=== PATIENT | female | born 1970 ===

== ENCOUNTER 2017-03-02 12:37 | Observation (INO) | payer MEDICAID, OTHER ==
[2017-03-02 12:42] VITALS: TEMP 97.7
[2017-03-02] MEDS ORDERED: Sodium Chloride 0.9% 1,000 ML IV ONE (12:53)
[2017-03-02] MEDS ORDERED: Iohexol 240 (50 ml) PO ONE (13:06)
[2017-03-02] MEDS ORDERED: Iohexol 240 (50 ml) ONE (13:24)
[2017-03-02] MEDS ORDERED: Sodium Chloride 0.9% 1,000 ML ONE (13:24)
[2017-03-02 13:53] LABS: SQUAMOUS EPITHIAL 4 /hpf (0-5); URINE BACTERIA RARE (<OCC); URINE BILIRUBIN NEGATIVE (NEGATIVE); URINE BLOOD NEGATIVE (NEGATIVE); URINE CLARITY Clear (Clear); URINE COLOR Yellow (YELLOW); URINE GLUCOSE (UA) 3+ mg/dL (Normal); URINE LEUKOCYTE ESTERASE NEG Leu/uL (Negative); URINE NITRATE NEGATIVE (NEGATIVE); URINE PROTEIN NEGATIVE (NEGATIVE); URINE UROBILINOGEN NORMAL mg/dL (0.2-1.0)
[2017-03-02 13:56] LABS: ALBUMIN 3.8 g/dL (3.5-5.0); BASO # 0.1 K/uL (0.0-0.2); BASO % 0.8 % (0.0-2.0); EOS # 0.1 K/uL (0.0-0.7); EOS % 1.8 % (0.0-4.0); HEMOGLOBIN 14.9 g/dL (11.0-16.0); LYMPH # 2.1 K/uL (1.0-4.3); LYMPH % 31.5 % (20.0-40.0); MEAN CELL VOLUME 84.4 fL (81.0-99.0); MEAN CORPUSCULAR HEMOGLOBIN 27.5 pg (27.0-31.0); MEAN CORPUSCULAR HGB CONC 32.7 g/dL (33.0-37.0); MEAN PLATELET VOLUME 9.2 fL (7.2-11.7); MONO # 0.8 K/uL (0.0-0.8); MONO % 12.7 % (0.0-10.0); NEUT # 3.5 K/uL (1.8-7.0); NEUT % 53.2 % (50.0-75.0); NRBC % 0.1 % (0.0-2.0); RBC 5.4 Mil/uL (3.80-5.20); RED CELL DISTRIBUTION WIDTH 15.5 % (11.5-14.5); WHITE BLOOD COUNT 6.6 K/uL (4.8-10.8)
[2017-03-02 13:59] LABS: ALT/SGPT 113 U/L (9-52); AST/SGOT 110 U/L (14-36); BLOOD UREA NITROGEN 16 mg/dL (7-17); GFR AFRICAN-AMERICAN > 60; GFR NON-AFRICAN AMERICAN > 60; LIPASE 109 U/L (23-300)
[2017-03-02 14:00] LABS: CALCIUM 9.2 mg/dl (8.6-10.4)
[2017-03-02] MEDS ORDERED: Iohexol 300 100 ML IJ ONE (14:43)
--- NOTE | 2017-03-02 15:43 | CT ---
PROCEDURE: CT Abdomen and Pelvis with contrast HISTORY: left sided abdominal pain COMPARISON: None. TECHNIQUE: Multiple contiguous axial images were performed through the abdomen and pelvis with intravenous contrast. Subsequently, sagittal and coronal reformatted images were obtained. Radiation dose: Total exam DLP = 693 mGy-cm. This CT exam was performed using one or more of the following dose reduction techniques: Automated exposure control, adjustment of the mA and/or kV according to patient size, and/or use of iterative reconstruction technique. FINDINGS: LOWER THORAX: Bilateral breast prostheses noted. Incidentally noted is a the curvilinear septation within the right breast prosthesis. Clinical correlation. 2-3 millimeter nodule/granuloma within the posterior aspect of the right lower lobe. LIVER: Prominent liver with diffuse fatty infiltration. GALLBLADDER AND BILE DUCTS: Distended gallbladder. PANCREAS: Unremarkable. No gross lesion or ductal dilatation. SPLEEN: Unremarkable. ADRENALS: Unremarkable. No mass. KIDNEYS AND URETERS: Unremarkable. No hydronephrosis. No solid mass. VASCULATURE: Unremarkable. No aortic aneurysm. BOWEL: Small hiatal hernia. Underdistention and or mild gastric wall thickening. Underdistended descending colon. Moderate fecal retention in the right hemicolon. APPENDIX: Not well delineated. Perhaps partially imaged on series 3, images 135 through 155, grossly preserved. PERITONEUM: Unremarkable. No free fluid. No free air. LYMPH NODES: Few shotty para-aortic and inguinal lymph nodes. Few shotty mesenteric lymph nodes. BLADDER: Mildly thick-walled urinary bladder. REPRODUCTIVE: Heterogeneous and prominent uterus and bilateral adnexa. Trace free fluid adjacent to the left adnexa. Suggestion of a possible fibroid and or ovarian lesion at the level of the left aspect of the uterus/left adnexa. This may be better delineated with pelvic ultrasound. BONES: Degenerative changes in the spine. Posterior disc osteophyte complex at the L5-S1 level. OTHER FINDINGS: None. IMPRESSION: Heterogeneous and prominent uterus and bilateral adnexa. Trace free fluid adjacent to the left adnexa. Suggestion of a possible fibroid and or ovarian lesion at the level of the left aspect of the uterus/left adnexa. This may be better delineated with pelvic ultrasound. Prominent liver with diffuse fatty infiltration. Small hiatal hernia. Underdistention and or mild gastric wall thickening. Underdistended descending colon. Moderate fecal retention in the right hemicolon. Additional findings as above.
--- NOTE | 2017-03-02 15:50 | C.PDOC ---
History Of Present Illness 46 yr old female presents to the ER with complaints of increasing left sided abdominal pain and distention for the past 1 week, associated with fever, nausea and non blood diarrhea. Patient denies recent travel, vomiting, dysuria, hematuria, weakness or numbness. Time Seen by Provider: 03/02/17 12:52 Chief Complaint (Nursing): Abdominal Pain History Per: Patient History/Exam Limitations: no limitations Onset/Duration Of Symptoms: Days (1 week) Past Medical History Reviewed: Historical Data, Nursing Documentation, Vital Signs Vital Signs: Last Vital Signs Temp 97.7 F 03/02/17 16:38 Pulse 88 03/02/17 20:53 Resp 16 03/02/17 20:53 BP 128/88 03/02/17 20:53 Pulse Ox 97 03/02/17 20:53 Family History: States: No Known Family Hx - Social History Hx Alcohol Use: No Hx Substance Use: No - Immunization History Hx Tetanus Toxoid Vaccination: No Hx Influenza Vaccination: No Hx Pneumococcal Vaccination: No Review Of Systems Except As Marked, All Systems Reviewed And Found Negative. Constitutional: Positive for: Fever (Subjective) Gastrointestinal: Positive for: Nausea, Abdominal Pain (Left ), Diarrhea (Non bloody ). Negative for: Vomiting Genitourinary: Negative for: Dysuria, Hematuria Musculoskeletal: Negative for: Neck Pain, Shoulder Pain Physical Exam - Physical Exam Appears: Non-toxic, No Acute Distress Skin: Warm, Dry, No Rash Head: Atraumatic, Normacephalic Oral Mucosa: Moist Chest: Symmetrical, No Tenderness Cardiovascular: Rhythm Regular, No Murmur Respiratory: Normal Breath Sounds, No Rales, No Wheezing Gastrointestinal/Abdominal: Soft, Tenderness (Left sided ), Distention (Mild), No Guarding, No Rebound Back: Normal Inspection, No CVA Tenderness Extremity: Normal ROM, No Swelling Neurological/Psych: Oriented x3, Normal Speech ED Course And Treatment - Laboratory Results Result Diagrams: 03/02/17 13:40 03/02/17 13:40 O2 Sat by Pulse Oximetry: 98 (RA) Pulse Ox Interpretation: Normal - CT Scan/US CT - Abdomen & Pelvis Other Rad Studies (CT/US): Read By Radiologist, Radiology Report Reviewed CT/US Interpretation: PROCEDURE: CT Abdomen and Pelvis with contrast. HISTORY : left sided abdominal pain. COMPARISON: None. TECHNIQUE: Multiple contiguous axial images were performed through the abdomen and pelvis with intravenous contrast. Subsequently, sagittal and coronal reformatted images were obtained. Radiation dose: Total exam DLP = 693 mGy-cm. This CT exam was performed using one or more of the following dose reduction techniques: Automated exposure control, adjustment of the mA and/or kV according to patient size, and/or use of iterative reconstruction technique. FINDINGS: LOWER THORAX : Bilateral breast prostheses noted. Incidentally noted is a the curvilinear septation within the right breast prosthesis. Clinical correlation. 2-3 millimeter nodule/granuloma within the posterior aspect of the right lower lobe. LIVER: Prominent liver with diffuse fatty infiltration. GALLBLADDER AND BILE DUCTS: Distended gallbladder. PANCREAS: Unremarkable. No gross lesion or ductal dilatation. SPLEEN: Unremarkable. ADRENALS: Unremarkable. No mass. KIDNEYS AND URETERS: Unremarkable. No hydronephrosis. No solid mass. VASCULATURE: Unremarkable. No aortic aneurysm. BOWEL: Small hiatal hernia. Underdistention and or mild gastric wall thickening. Underdistended descending colon. Moderate fecal retention in the right hemicolon. APPENDIX: Not well delineated. Perhaps partially imaged on series 3, images 135 through 155, grossly preserved. PERITONEUM: Unremarkable. No free fluid. No free air. LYMPH NODES: Few shotty para-aortic and inguinal lymph nodes. Few shotty mesenteric lymph nodes. BLADDER: Mildly thick-walled urinary bladder. REPRODUCTIVE: Heterogeneous and prominent uterus and bilateral adnexa. Trace free fluid adjacent to the left adnexa. Suggestion of a possible fibroid and or ovarian lesion at the level of the left aspect of the uterus/left adnexa. This may be better delineated with pelvic ultrasound. BONES: Degenerative changes in the spine. Posterior disc osteophyte complex at the L5-S1 level. OTHER FINDINGS: None. IMPRESSION: Heterogeneous and prominent uterus and bilateral adnexa. Trace free fluid adjacent to the left adnexa. Suggestion of a possible fibroid and or ovarian lesion at the level of the left aspect of the uterus/left adnexa. This may be better delineated with pelvic ultrasound. Prominent liver with diffuse fatty infiltration. Small hiatal hernia. Underdistention and or mild gastric wall thickening. Underdistended descending colon. Moderate fecal retention in the right hemicolon. Additional findings as above. Medical Decision Making Medical Decision Making: PLAN: * CT - Abdomen & Pelvis * CBC * CMP * POC * Urinalysis * Pepcid IVP * Zofran Ivp * Sodium Chloride IV Disposition - Disposition Disposition: HOME/ ROUTINE Disposition Time: 20:20 Condition: IMPROVED - Clinical Impression Clinical Impression: Abdominal pain - Scribe Statement The provider has reviewed the documentation as recorded by the Belénibe Mary Grace Parisi Provider Attestation: All medical record entries made by the Belénibe were at my direction and personally dictated by me. I have reviewed the chart and agree that the record accurately reflects my personal performance of the history, physical exam, medical decision making, and the department course for this patient. I have also personally directed, reviewed, and agree with the discharge instructions and disposition.
--- NOTE | 2017-03-02 20:16 | US ---
EXAM: US Abdomen Complete CLINICAL HISTORY: 46 years old, female; Pain; Abdominal pain; Epigastric; Additional info: F/u to CT today - elevated lft's TECHNIQUE: Real-time ultrasound of the abdomen (complete) with image documentation. EXAM DATE/TIME: Exam ordered 03/02/2017 4:01 PM COMPARISON: No relevant prior studies available. FINDINGS: Liver: The liver measures 19.1 cm in craniocaudal span. The liver is generally increased in echotexture. There is normal blood flow direction the main portal vein. A focal area of relative decreased echotexture is noted in the liver parenchyma at the level of the hepatocholecystic space. Gallbladder: Unremarkable. No gallstones. Common bile duct: The common bile that measures 3 mm. No stones. No dilation. Pancreas: Unremarkable as visualized. Kidneys: The right kidney measures 13.6 x 4.9 x 5 cm. The left kidney measures 12.7 x 6.5 x 6.1 cm. No stones. No hydronephrosis. Spleen: The spleen measures 10.9 cm in craniocaudal span. Aorta: Unremarkable. No aneurysm. Inferior vena cava: Unremarkable. IMPRESSION: Hepatic steatosis. Focal area of decreased attenuation in hepato- cholecystic space represents normal liver parenchyma on a background of fatty infiltration.
[2017-03-02 20:58] VITALS: BP 128/88; PULSE 88; RESP 16
[2017-03-02 22:26] VITALS: O2SAT 98
== END 2017-03-02 20:59 | disposition home or self-care (01) ==
LOC: C.ER 12:37 → C.9OBSV 16:00
PROVIDERS: ADMIT Emergency Medicine; ATTEND Emergency Medicine
DX: R10.13 Epigastric pain (principal)
CPT/HCPCS: 74177; 76700; 80053; 81001; 83690; 85025; 87086; 96374; 96375; 99285; G0378; J2405; J7040; Q9966; Q9967

== ENCOUNTER 2017-04-10 14:57 | Emergency (ER) | payer OTHER ==
[2017-04-10 15:15] VITALS: BP 122/82; PULSE 78; RESP 78; TEMP 98; O2SAT 98
[2017-04-10] MEDS ORDERED: Naproxen 550 mg Tab PO STA (15:51)
[2017-04-10] MEDS ORDERED: Naproxen 550 mg Tab PO ONE (15:58)
--- NOTE | 2017-04-10 16:20 | C.PDOC ---
History Of Present Illness 46 yr old female presents to the ER with complaints of twisting her right ankle 3 days ago. Patient states she was going down the stairs when she twisted her ankle. Patient reports she has tried hot compresses and warm water treatment with no relief. States walking on the ankle makes it worse. Denies fall, back pain, leg pain, foot pain, weakness or numbness. Time Seen by Provider: 04/10/17 15:22 Chief Complaint (Nursing): Lower Extremity Problem/Injury History Per: Patient History/Exam Limitations: no limitations Onset/Duration Of Symptoms: Days (3) Past Medical History Reviewed: Historical Data, Nursing Documentation, Vital Signs Vital Signs: Last Vital Signs Temp 98.0 F 04/10/17 15:12 Pulse 78 04/10/17 15:12 Resp 78 H 04/10/17 15:12 BP 122/82 04/10/17 15:12 Pulse Ox 98 04/10/17 16:23 Family History: States: No Known Family Hx - Social History Hx Alcohol Use: No Hx Substance Use: No - Immunization History Hx Tetanus Toxoid Vaccination: No Hx Influenza Vaccination: No Hx Pneumococcal Vaccination: No Review Of Systems Except As Marked, All Systems Reviewed And Found Negative. Musculoskeletal: Positive for: Other ((+) Right ankle, twisting injury). Negative for: Back Pain, Leg Pain, Foot Pain Neurological: Negative for: Weakness, Numbness Physical Exam - Physical Exam Appears: Non-toxic, No Acute Distress Skin: Warm, Dry, No Rash Head: Atraumatic, Normacephalic Extremity: No Calf Tenderness, Capillary Refill (<2 sec), Swelling (Right lateral malleolus) Neurological/Psych: Oriented x3, Normal Speech, Normal Motor, Normal Sensation ED Course And Treatment O2 Sat by Pulse Oximetry: 98 (RA) Pulse Ox Interpretation: Normal Progress Note: PLAN: X-Ray - Right Ankle & Naproxen PO. Disposition - Disposition Referrals: [facility] [Outside] [facility] [place] [Outside] David John MD [Staff Provider] - Disposition: HOME/ ROUTINE Disposition Time: 16:40 Condition: STABLE Additional Instructions: SEGUIMIENTO CON ORTOPEDIA DENTRO DE 1 SEMANA USE MEDICAMENTOS SEGN LO DIRIGIDO DEVUELVA A LA JOVON DE EMERGENCIA SI LOS SNTOMAS EMPEORARAN Prescriptions: Naproxen [Naprosyn Tab] 375 mg PO BID PRN #20 tab PRN Reason: pain Instructions: Ankle Sprain (ED), Ankle Stirrup Splint (ED) Forms: [employer] (Swazi) Print Language: ZAMBIAN - Clinical Impression Clinical Impression: Right ankle sprain - Scribe Statement The provider has reviewed the documentation as recorded by the Belénibyamil Parisi Provider Attestation: All medical record entries made by the Belénibyamil were at my direction and personally dictated by me. I have reviewed the chart and agree that the record accurately reflects my personal performance of the history, physical exam, medical decision making, and the department course for this patient. I have also personally directed, reviewed, and agree with the discharge instructions and disposition.
--- NOTE | 2017-04-10 16:22 | C.PDOC ---
Time Seen by Provider: 04/10/17 15:22 Chief Complaint (Nursing): Lower Extremity Problem/Injury Past Medical History Vital Signs: Last Vital Signs Temp 98.0 F 04/10/17 15:12 Pulse 78 04/10/17 15:12 Resp 78 H 04/10/17 15:12 BP 122/82 04/10/17 15:12 Pulse Ox 98 04/10/17 15:12 - Social History Hx Alcohol Use: No Hx Substance Use: No - Immunization History Hx Tetanus Toxoid Vaccination: No Hx Influenza Vaccination: No Hx Pneumococcal Vaccination: No ED Course And Treatment O2 Sat by Pulse Oximetry: 98 Disposition Counseled Patient/Family Regarding: Studies Performed, Diagnosis, Need For Followup, Rx Given - Disposition Referrals: David John MD [Staff Provider] - [facility] [place] [Outside] [facility] [Outside] Disposition: HOME/ ROUTINE Disposition Time: 16:40 Condition: STABLE Additional Instructions: SEGUIMIENTO CON ORTOPEDIA DENTRO DE 1 SEMANA USE MEDICAMENTOS SEGN LO DIRIGIDO DEVUELVA A LA JOVON DE EMERGENCIA SI LOS SNTOMAS EMPEORARAN Prescriptions: Naproxen [Naprosyn Tab] 375 mg PO BID PRN #20 tab PRN Reason: pain Instructions: Ankle Sprain (ED), Ankle Stirrup Splint (ED) Forms: [employer] (Kiswahili) Print Language: INDONESIAN - POA Present On Arrival: Falls Or Trauma - Clinical Impression Clinical Impression: Right ankle sprain
--- NOTE | 2017-04-10 16:24 | RAD ---
PROCEDURE: Right ankle dated 04/10/2017 HISTORY: Right ankle pain/injury ; r/o fx COMPARISON: None FINDINGS: BONES: No evidence of acute displaced fracture nor dislocation. The osseous structures -talar dome intact Small plantar calcaneal osteophyte present. JOINTS: Ankle mortise maintained. The there there appears to be a tiny osteophyte arising from the inferomedial tip of the medial malleolus. SOFT TISSUES: There appears to be mild bilateral soft tissue swelling. OTHER FINDINGS: None. IMPRESSION: No evidence of acute displaced fracture nor dislocation. Mild bilateral soft tissue swelling.
== END 2017-04-10 16:53 | disposition home or self-care (01) ==
LOC: C.ER 14:57
DX: S93.401A Sprain of unspecified ligament of right ankle, initial encounter (principal); X50.9XXA Other and unspecified overexertion or strenuous movements or postures, initial encounter